=== PATIENT | female | born 1950 | race Caucasian/White ===

== ENCOUNTER → 2023-06-24 08:26 | Outpatient (REF) | payer MEDICARE, SELFPAY ==
[2023-06-24 09:27] LABS: % Basophils 1.5 % (0-2); % Eosinophils 1.4 % (0-6); % Lymphocytes 39.5 % (20.5-51.1); % Neutrophils 45.6 % (42.2-75.2); Absolute Basophils 0.1 10^3/uL (0-0.2); Absolute Eosinophils 0.1 10^3/uL (0-0.7); Absolute Lymphocytes 2.6 10^3/uL (1.2-3.4); Absolute Monocytes 0.8 10^3/uL (0.1-0.6); Hematocrit 41.9 % (37.0-47.0); Hemoglobin 14.1 g/dL (12.0-16.0); Mean Corp Hgb Conc. 33.7 g/dL (33.0-37.0); Mean Corpuscular Hgb 30.1 pg (27.0-31.0); Mean Corpuscular Volume 89.3 fL (81.0-99.0); Mean Platelet Volume 10.3 fL (7.4-10.4); Nucleated Red Blood Cells % 0 %; Platelet Count 278 10^3/uL (130-400); Red Blood Cell Count 4.69 10^6/uL (4.20-5.40); Red Cell Dist. Width 13.3 % (11.5-14.5); White Blood Cell Count 6.5 10^3/uL (4.8-10.8)
[2023-06-24 10:44] LABS: ALT (SGPT) 16 U/L (0-35); AST (SGOT) 28 U/L (14-36); Albumin 4.3 g/dl (3.5-5.0); Alkaline Phosphatase 107 U/L (38-126); Blood Urea Nitrogen 17 mg/dl (7-17); Calcium 9.9 mg/dl (8.4-10.2); Carbon Dioxide 27 mmol/L (22-30); Chloride 103 mmol/L (98-107); Glucose 97 mg/dl (70-99); HDL Cholesterol 81 mg/dl; LDL Cholesterol, Calculated 95 mg/dl; Potassium 4.1 mmol/L (3.5-5.1); Sodium 139 mmol/L (135-145); Total Bilirubin 1.4 mg/dl (0.2-1.3); Total Cholesterol 190 mg/dl (50-199); Total Protein 7.4 g/dl (6.3-8.2); Triglyceride 74 mg/dl (10-149); Very Low Density Lipoprotein 14 mg/dl (0-30); eGFR > 60.00
[2023-06-24 12:02] LABS: Glycohemoglobin (HgbA1c) 5.7 % (4.0-5.6)
[2023-06-24 13:43] LABS: Urine Albumin Negative (Neg - Trace); Urine Bilirubin Negative (Negative); Urine Character Clear (Clear); Urine Color Yellow; Urine Glucose Negative (Negative); Urine Ketone Negative (Negative); Urine Leukocyte Negative (Negative); Urine Nitrite Negative (Negative); Urine Occult Blood Negative (Negative); Urine Specific Gravity 1.015 (<1.030); Urine Urobilinogen Negative (Neg - 1+)
== END ==
LOC: REG 08:26
PROVIDERS: ATTENDING PHYSICIAN Family Medicine
DX: E78.5 Hyperlipidemia, unspecified (principal); R73.09 Other abnormal glucose
CPT/HCPCS: 36415; 80053; 80061; 81003; 83036; 85025

== ENCOUNTER → 2023-07-01 12:53 | Outpatient (REF) | payer MEDICARE, SELFPAY | LOC: HWRCS 12:53 | PROVIDERS: ATTENDING PHYSICIAN Family Medicine | DX: R01.1 Cardiac murmur, unspecified (principal) | CPT/HCPCS: 93005; 93306 ==

== ENCOUNTER → 2023-07-31 07:56 | Outpatient (REF) | payer MEDICARE, SELFPAY | LOC: WDC 07:56 | PROVIDERS: ATTENDING PHYSICIAN Obstetrics & Gynecology; FAMILY PHYSICIAN Family Medicine | DX: Z12.31 Encounter for screening mammogram for malignant neoplasm of breast (principal) | CPT/HCPCS: 77063; 77067 ==

== ENCOUNTER → 2023-10-06 07:42 | Outpatient (REF) | payer MEDICARE, SELFPAY | LOC: WDC 07:42 | PROVIDERS: ATTENDING PHYSICIAN Obstetrics & Gynecology; FAMILY PHYSICIAN Family Medicine | DX: R92.2 Inconclusive mammogram (principal) | CPT/HCPCS: 76641 ==

== ENCOUNTER → 2024-07-14 07:54 | Outpatient (REF) | payer MEDICARE, SELFPAY ==
[2024-07-14 08:35] LABS: % Basophils 1.5 % (0-2); % Eosinophils 2.2 % (0-6); % Immature Granulocytes 0.1 % (0-0.5); % Lymphocytes 33.7 % (20.5-51.1); % Monocytes 12.1 % (1.7-9.3); % Neutrophils 50.4 % (42.2-75.2); Absolute Basophils 0.1 10^3/uL (0-0.2); Absolute Eosinophils 0.2 10^3/uL (0-0.7); Absolute Lymphocytes 2.5 10^3/uL (1.2-3.4); Absolute Monocytes 0.9 10^3/uL (0.1-0.6); Absolute Neutrophils 3.7 10^3/uL (1.4-6.5); Hematocrit 39.6 % (37.0-47.0); Hemoglobin 13.6 g/dL (12.0-16.0); Mean Corp Hgb Conc. 34.3 g/dL (33.0-37.0); Mean Corpuscular Hgb 31.1 pg (27.0-31.0); Mean Corpuscular Volume 90.6 fL (81.0-99.0); Mean Platelet Volume 10.3 fL (7.4-10.4); Nucleated Red Blood Cells % 0 %; Platelet Count 286 10^3/uL (130-400); Red Blood Cell Count 4.37 10^6/uL (4.20-5.40); Red Cell Dist. Width 13.9 % (11.5-14.5); White Blood Cell Count 7.3 10^3/uL (4.8-10.8)
[2024-07-14 09:13] LABS: ALT (SGPT) 21 U/L (0-35); AST (SGOT) 25 U/L (14-36); Albumin 4.4 g/dl (3.5-5.0); Alkaline Phosphatase 90 U/L (38-126); Blood Urea Nitrogen 16 mg/dl (7-17); Calcium 9.6 mg/dl (8.4-10.2); Carbon Dioxide 25 mmol/L (22-30); Chloride 109 mmol/L (98-107); Glucose 106 mg/dl (70-99); HDL Cholesterol 74 mg/dl; LDL Cholesterol, Calculated 108 mg/dl; Potassium 4.7 mmol/L (3.5-5.1); Sodium 140 mmol/L (135-145); Total Bilirubin 1.2 mg/dl (0.2-1.3); Total Cholesterol 198 mg/dl (50-199); Total Protein 7.2 g/dl (6.3-8.2); Triglyceride 80 mg/dl (10-149); Very Low Density Lipoprotein 16 mg/dl (0-30); eGFR > 60.00
[2024-07-14 09:46] LABS: Glycohemoglobin (HgbA1c) 5.7 % (4.0-5.6)
== END ==
LOC: REG 07:54
PROVIDERS: ATTENDING PHYSICIAN Hospitalist
DX: Z00.00 Encounter for general adult medical examination without abnormal findings (principal); E78.5 Hyperlipidemia, unspecified; R73.09 Other abnormal glucose
CPT/HCPCS: 36415; 80053; 80061; 83036; 85025

== ENCOUNTER → 2024-08-02 12:52 | Outpatient (REF) | payer MEDICARE, SELFPAY | LOC: WDC 12:52 | PROVIDERS: ATTENDING PHYSICIAN Hospitalist | DX: Z12.31 Encounter for screening mammogram for malignant neoplasm of breast (principal) | CPT/HCPCS: 77063; 77067 ==

== ENCOUNTER → 2024-12-28 09:32 | Outpatient (REF) | payer MEDICARE, SELFPAY | LOC: RAD 09:32 | PROVIDERS: ATTENDING PHYSICIAN Obstetrics & Gynecology; FAMILY PHYSICIAN Hospitalist | DX: Z78.0 Asymptomatic menopausal state (principal) | CPT/HCPCS: 77080 ==